=== PATIENT | female | born 1970 | race Caucasian/White ===

== ENCOUNTER 2020-12-13 10:04 | Emergency (ER) | payer OTHER ==
[2020-12-14 12:11] LABS: SARS-CoV-2 NAA Not Detected (Not Detected)
== END 2020-12-13 11:17 | disposition home or self-care (01) ==
LOC: JVIRT 10:04
DX: Z20.822 Contact with and (suspected) exposure to COVID-19 (principal)
CPT/HCPCS: C9803; Q3014-GT; U0003; U0005